=== PATIENT | female | born 2000 ===

== ENCOUNTER 2021-12-23 06:55 | Inpatient (IN) | payer SELFPAY ==
[2021-12-23] MEDS ORDERED: Lidocaine 1% 50 ML MDV INJECT PRN (07:22)
[2021-12-23] MEDS ORDERED: Terbutaline 1 MG/ML SDV SUBCUT PRN (07:22)
[2021-12-23] MEDS ORDERED: Sodium Chloride 0.9% 20 ML SDV IV PRN (07:22)
[2021-12-23] MEDS ORDERED: Sodium Chloride 0.9% 2.5 ML Syringe FLUSH PRN (07:22)
[2021-12-23] MEDS ORDERED: Butorphanol 1 MG/ML SDV IVPUSH PRN (07:22)
[2021-12-23] MEDS ORDERED: Misoprostol 200 MCG Tab PO PRN (07:22)
[2021-12-23] MEDS ORDERED: Sodium Chloride 0.9% 10 ML Syringe FLUSH PRN (07:22)
[2021-12-23] MEDS ORDERED: Water For Irrigation,Sterile 1,000 ML Container IRR PRN (07:22)
[2021-12-23] MEDS ORDERED: Carboprost Tromethamine 250 MCG/1 ML Amp IM PRN (07:22)
[2021-12-23] MEDS ORDERED: Methylergonovine 0.2 MG/1 ML Amp IM PRN (07:22)
[2021-12-23] MEDS ORDERED: Tranexamic Acid 1,000 MG in Sodium Chloride 0.9% 100 ML IV PRN (07:22)
[2021-12-23] MEDS ORDERED: Oxytocin/0.9 % Sodium Chloride 30 UNIT/500 ML BAG IV SCH ×2 (07:30)
[2021-12-23] MEDS: Lactated Ringers 1,000 ML IV SCH ×3 (08:03→14:23)
[2021-12-23] MEDS ORDERED: Ropivacaine/PF 400 MG/200 ML PCA ONE (14:02)
[2021-12-23] MEDS ORDERED: ePHEDrine 50 MG/ML SDV IVPUSH PRN (14:19)
[2021-12-23] MEDS ORDERED: Ropivacaine HCl/PF 400 MG in Premix Bag 1 BAG EPIDUR SCH (14:30)
[2021-12-23] MEDS ORDERED: Phenylephrine HCl In 0.9% NaCl 1 MG/10 ML Vial IVPUSH SCH (14:30)
[2021-12-23] MEDS ORDERED: fentaNYL 100 MCG/2 ML SDV ONE (14:52)
[2021-12-23] MEDS ORDERED: Benzocaine/Menthol 20%-0.5% Spray 78 GM Cannister TOP PRN (17:21)
[2021-12-23] MEDS ORDERED: Ibuprofen 400 MG Tab PO PRN (17:21)
[2021-12-23] MEDS ORDERED: Docusate Sodium 100 MG Cap PO PRN (17:21)
[2021-12-23] MEDS ORDERED: oxyCODONE 5 MG Tab PO PRN (17:21)
[2021-12-23] MEDS ORDERED: Witch Hazel Medicated Pads 40/Jar TOP PRN (17:21)
[2021-12-23] MEDS ORDERED: Acetaminophen 500 MG Tab PO PRN ×2 (17:21)
[2021-12-23] MEDS ORDERED: Bisacodyl 10 MG Supp RECTAL PRN (17:21)
[2021-12-23] MEDS ORDERED: Lanolin 100% Cream 7 GM Tube TOP PRN (17:21)
[2021-12-23] MEDS ORDERED: Measles, Mumps & Rubella Vaccine 0.5 ML SDV SUBCUT ONE (17:21)
[2021-12-23] MEDS: Ibuprofen 800 MG Tab PO PRN (20:22)
[2021-12-24] MEDS: Ibuprofen 800 MG Tab PO PRN ×2 (03:27→21:41)
== END 2021-12-25 12:35 | disposition home or self-care (01) | DRG 807 ==
LOC: MW.OBCHECK 06:55 → MW.OB 06:56 → MW.OBCHECK 07:22 → OBSVTOIN 16:46 → MW.OB 22:23
PROVIDERS: ADMIT Obstetrics & Gynecology; ATTEND Obstetrics & Gynecology
PROC: 10E0XZZ Delivery of Products of Conception, External Approach (ICD-10-PCS; principal; 2021-12-23)
PROC: 10907ZC Drainage of Amniotic Fluid, Therapeutic from Products of Conception, Via Natural or Artificial Opening (ICD-10-PCS; 2021-12-23)
PROC: 3E033VJ Introduction of Other Hormone into Peripheral Vein, Percutaneous Approach (ICD-10-PCS; 2021-12-23)
PROC: 3E0R3BZ Introduction of Anesthetic Agent into Spinal Canal, Percutaneous Approach (ICD-10-PCS; 2021-12-23)
PROC: 3E0234Z Introduction of Serum, Toxoid and Vaccine into Muscle, Percutaneous Approach (ICD-10-PCS; 2021-12-25)
DX: O36.5930 Maternal care for other known or suspected poor fetal growth, third trimester, not applicable or unspecified (principal); Z37.0 Single live birth; Z3A.39 39 weeks gestation of pregnancy; O69.81X0 Labor and delivery complicated by cord around neck, without compression, not applicable or unspecified; Z20.822 Contact with and (suspected) exposure to COVID-19; Z23 Encounter for immunization
CPT/HCPCS: 01967; 36415; 51702; 59025; 59409; 82803; 85014; 85018; 85027; 86592; 86850; 86900; 86901; 90471; 90707; A9270-GY; J2590; J2795; J3010; J7120; U0002